=== PATIENT | female | born 2000 | race Caucasian/White ===

== ENCOUNTER 2024-02-07 00:35 | Emergency (ER) | payer MEDICAID ==
[~2024-02-07] VITALS: Ht 132.1 cm; Wt 39.0 kg
[2024-02-07 00:37] VITALS: O2SAT 98
[2024-02-07] MEDS ORDERED: ACETAMINOPHEN 650MG/20.3ML UDC PO NR (02:15)
[2024-02-07] MEDS: ACETAMINOPHEN 650MG/20.3ML UDC PO NR (04:14)
[2024-02-07 05:36] LABS: BASOPHILS % 0.3 % (0.0-2.0); HEMATOCRIT. 41.7 % (36.0-48.0); HEMOGLOBIN. 13.9 g/dL (12.0-16.0); LYMPHOCYTES % 19.6 % (20.0-50.0); MEAN CORPUSCULAR HEMOGLOBIN 29.4 pg (28.0-32.0); MEAN CORPUSCULAR HGB CONC 33.2 g/dL (31.0-37.0); MEAN CORPUSCULAR VOLUME 88.5 fL (81.0-99.0); MEAN PLATELET VOLUME 8.4 fl (7.4-10.4); MONOCYTES % 7.5 % (2.0-8.0); NEUTROPHILS % 72.6 % (40.0-76.0); PLATELET 292 x1000/uL (130-400); RED BLOOD CELL COUNT 4.72 mill/uL (4.2-5.4); RED CELL DISTRIBUTION WIDTH 12.9 % (11.6-14.6); WHITE BLOOD COUNT 8.9 x1000/uL (4.5-11.0)
[2024-02-07 05:43] LABS: CHLORIDE 109 mEq/L (98-107); SODIUM 141 mEq/L (136-145)
[2024-02-07 05:44] LABS: CALCIUM 9.9 mg/dL (8.7-10.4); CARBON DIOXIDE 23 mEq/L (21-32)
[2024-02-07 05:49] LABS: CREATININE 0.6 mg/dL (0.6-1.0); GLUCOSE 122 mg/dL (70-105); UREA NITROGEN BLOOD 11 mg/dL (9-23)
[2024-02-07 05:51] LABS: ALANINE AMINOTRANSFERASE 18 IU/L (10-49); ALBUMIN 5.3 g/dL (3.2-4.8); ASPARTATE AMINOTRANSFERASE 19 IU/L (<34); BILIRUBIN TOTAL 0.8 mg/dL (0.1-1.0); LACTIC ACID 2.3 mmol/L (0.4-2.0); PROTEIN TOTAL 7.9 g/dL (6.0-8.3)
[2024-02-07 06:15] VITALS: BP 118/77; PULSE 67; RESP 20; TEMP 97.8
[2024-02-07 07:51] LABS: ERYTHROCYTE SEDIMENTATION RATE 9 mm/hr (0-20)
== END 2024-02-07 06:30 | disposition home or self-care (01) ==
LOC: ER 00:35
DX: S90.32XA Contusion of left foot, initial encounter (principal); I49.9 Cardiac arrhythmia, unspecified; Z98.890 Other specified postprocedural states; X58.XXXA Exposure to other specified factors, initial encounter; Y93.9 Activity, unspecified; Y92.89 Other specified places as the place of occurrence of the external cause; Y99.8 Other external cause status
CPT/HCPCS: 36415; 73630; 80053; 83605; 84145; 85025; 85651; 93005; 99285